=== PATIENT | female | born 1960 | race Caucasian/White ===

== ENCOUNTER → 2018-02-22 16:16 | Outpatient (CLI) | payer OTHER, SELFPAY ==
--- NOTE | 2018-02-22 16:22 | US_ITS ---
STUDY: THYROID ULTRASOUND REASON FOR EXAM: Female, 57 years old. F/U NODULES TECHNIQUE: Ultrasound evaluation of the thyroid was performed with real-time and static walden-scale imaging. COMPARISON: 01.24.17 FINDINGS: RIGHT LOBE: The right lobe of the thyroid gland measures 5.5 x 1.4 x 1.8 cm. There is a homogeneous echotexture. Mid right hypoechoic nodule measuring 5.3 x 5.7 x 4.6 mm. The lesion is solid with regular margins and giovanna nodular doppler flow. Solid nodule visualized in the right thyroid lobe measuring 4.8 x 3.9 x 4.8 mm. The lesion is solid with regular margins and intra- nodular doppler flow. Nodule in the right thyroid lobe measuring 7.6 x 4 x 5.4 mm. The lesion is solid with regular margins and giovanna nodular doppler flow. LEFT LOBE: The left lobe of the thyroid gland measures 4 x .9 x .8 cm. There is a homogeneous echotexture. Echogenic nodule in the left thyroid lobe measuring 4.5 x 2.7 x 2.8 mm. The lesion is solid with regular margins and giovanna nodular doppler flow. ISTHMUS: The isthmus measures 3 mm . Left neck lymph node measures 13 x 9 x 3 mm and 15 x 8 x 4 mm. Right Elliptical lymph node visualized measuring 13 x 3 x 9.3 mm. Another lymph node measured 8 x 5 x 4 mm and 10 x 7 x 3 mm. US/Thyroid IMPRESSION: Multiple subcentimeter bilateral thyroid nodules. These are relatively stable in size. Electronically Signed: Nik De La Rosa MD at 17:28 EDT , Service support ,
--- NOTE | 2018-02-22 16:58 | BI_ITS ---
MAMMOGRAPHY - BILATERAL SCREENING REASON FOR EXAM: Female, 57 years old. Routine annual screening examination. PERTINENT HISTORY: Aunt with breast cancer. TECHNIQUE: Digital bilateral breast chino (3D mammographic acquisition) in the CC and MLO projections. 2-D mediolateral oblique (MLO) and craniocaudad (CC) views of both breasts were obtained. CAD: Full Field Digital Mammography with Computer Added Detection was performed. COMPARISON: Comparison is made with prior study dated January 24, 2017. FINDINGS: Breast Composition: There are scattered areas of fibroglandular density. There are no dominant masses or suspicious calcifications. There is a 4.4 mm x 5.6 mm well-defined nodule in the slightly inferior lateral retroareolar region of the left breast. This most likely related to a small cyst. Correlation with ultrasound is recommended. No other significant abnormalities are identified. BI/SCREENING MAMM (CAD), BILAT IMPRESSION: 4 mm x 6 mm well-defined nodule in the left breast as described. Correlation with ultrasound is recommended. ASSESSMENT CATEGORY: BIRADS Category 0: Incomplete. Need additional imaging evaluation. A letter regarding these results will be sent to the patient by the facility within 30 days. Approximately 10% of breast cancers are not detected by mammography. A normal mammogram should not delay biopsy of a clinically suspicious abnormality. [id number] Electronically Signed: Harsh Chandra MD at 9:48 EDT Tel [phone], Service support ,
== END ==
PROVIDERS: Family Provider Internal Medicine; PCP Internal Medicine; Visit Provider Internal Medicine
DX: Z12.31 Encounter for screening mammogram for malignant neoplasm of breast (principal); E04.1 Nontoxic single thyroid nodule
CPT/HCPCS: 76536; 77063; 77067

== ENCOUNTER → 2018-02-28 15:31 | Outpatient (CLI) | payer OTHER, SELFPAY ==
--- NOTE | 2018-02-28 15:32 | US_ITS ---
STUDY: ULTRASOUND BREAST - LEFT REASON FOR EXAM: Female, 57 years old. Abnormal screening mammogram. TECHNIQUE: Axial and longitudinal images of the LEFT breast were performed with a high resolution ultrasound transducer. COMPARISON: Comparison is made with prior mammogram dated February 22, 2018. FINDINGS: LEFT Breast: The mammographic abnormality corresponds to a 3 mm x 2 mm x 3 mm cyst at the 5:00 position breast at 1 cm from nipple. This also evidence of a dilated duct. US/Breast Limited Unilateral IMPRESSION: 3 mm x 2 mm x 3 mm cyst at the 5:00 position breast at 1 cm from nipple. ASSESSMENT CATEGORY: BIRADS Category 2: Benign. A letter regarding these results will be sent to the patient by the facility within 30 days. Electronically Signed: Harsh Chandra MD at 7:59 EDT Tel [phone], Service support ,
== END ==
PROVIDERS: Family Provider Internal Medicine; PCP Internal Medicine; Visit Provider Internal Medicine
DX: R92.8 Other abnormal and inconclusive findings on diagnostic imaging of breast (principal)
CPT/HCPCS: 76642

== ENCOUNTER → 2018-04-24 07:58 | Outpatient (CLI) | payer OTHER, SELFPAY ==
--- NOTE | 2018-04-24 13:09 | ECHOD_ITS ---
Reason For Study: PVC Procedure This was a 2D Doppler, Color Flow transthoracic echocardiogram. The exam was of adequate technical quality. Exam performed in department. Left Ventricle Normal LV size. Left ventricular systolic function is normal. The estimated ejection fraction is 65 %. Transmitral doppler flow suggestive of impaired relaxation of left ventricle. No regional wall motion abnormalities noted. Right Ventricle Normal RV size. Normal systolic function. Atria The left atrium is mildly enlarged. Normal right atrium. No doppler evidence for ASD. Mitral Valve There is no mitral annular calcification. Normal mitral valve. Trivial mitral valve insufficiency. Tricuspid Valve Normal tricuspid valve. Trivial tricuspid valve insufficiency. Right ventricular systolic pressure estimated to be 25 mmHg. Aortic Valve Trisinus/trileaflet aortic valve. Normal aortic valve. Pulmonic Valve The pulmonic valve is not well visualized. Great Vessels Normal sized aortic root. Pericardium/Pleural No pericardial effusion. MMode/2D Measurements & Calculations LVIDd: 3.8 cm IVSd: 1.2 cm Ao root diam: 3.1 cm LVIDs: 2.0 cm LVPWd: 1.1 cm LA dimension: 3.7 cm FS: 47.3 % LAV(MOD-bp): 58.1 ml LA A4 area: 20.6 cm2 RA A4 area: 14.7 cm2 LAV(MOD-bp) Indexed: 30.4 ml/m2 LAV(MOD-sp2): 45.2 ml LAV(MOD-sp4): 61.0 ml Time Measurements MV dec time: 0.30 sec Doppler Measurements & Calculations MV E max brijesh: 66.6 cm/sec Lat Peak E' Brijesh: 13.2 cm/sec Med Peak E' Brijesh: 9.2 cm/sec MV A max brijesh: 92.8 cm/sec E/E' lat: 5.0 E/E' med: 7.2 MV E/A: 0.72 MV V2 max: 89.7 cm/sec MV P1/2t max brijesh: 76.4 cm/sec Ao V2 max: 133.5 cm/sec MV max P.2 mmHg MV P1/2t: 93.6 msec Ao max P.1 mmHg MV V2 mean: 52.7 cm/sec MV dec slope: 239.0 cm/sec2 Ao V2 mean: 92.7 cm/sec MV mean P.3 mmHg MVA(P1/2t): 2.4 cm2 Ao mean P.8 mmHg MV V2 VTI: 23.8 cm Ao V2 VTI: 28.3 cm LV V1 max: 113.8 cm/sec PA V2 max: 115.6 cm/sec TR max brijesh: 236.1 cm/sec LV V1 max P.2 mmHg TR max P.3 mmHg LV V1 mean P.4 mmHg LV V1 mean: 70.5 cm/sec LV V1 VTI: 22.8 cm Interpretation Summary Left ventricular systolic function is normal. The estimated ejection fraction is 65 %. The left atrium is mildly enlarged. Trivial mitral valve insufficiency. Trivial tricuspid valve insufficiency. Right ventricular systolic pressure estimated to be 25 mmHg. Transmitral doppler flow suggestive of impaired relaxation of left ventricle Ordering Physician: Ashley Kaur Referring Physician: Ashley Kaur Performed By: Chava Fox RCS
== END ==
PROVIDERS: Family Provider Internal Medicine; PCP Internal Medicine; Visit Provider Internal Medicine
DX: I49.3 Ventricular premature depolarization (principal)
CPT/HCPCS: 93225; 93226; 93306

== ENCOUNTER 2018-05-21 09:14 | Day surgery (SDC) | payer OTHER, SELFPAY ==
[2018-05-21] VITALS (7 sets, daily range): BP systolic 79–132; BP diastolic 63–82; PULSE 62–74; RESP 16–18; TEMP 36.2–36.6; O2SAT 96–100; BMI 25.7
--- NOTE | 2018-05-21 10:33 | PCM.OPRPT ---
Problem List (1) Colon cancer screening Status: Acute Report of Operation Date of Procedure: 05/21/18 Pre-Operative Diagnosis: Z12.11 screening colonoscopy Post-Operative Diagnosis: Same Surgery/Procedure Performed:: [id number] colonoscopy Type of Anesthesia:: MAC Anesthesiologist: Haris Arriola Description of Procedure: Patient was brought into the endoscopy suite. Placed in the left lateral decubitus position. Given graded anesthesia. Scope was inserted into the rectum and directed to the sigmoid colon, descending colon, transverse colon, ascending colon, to the cecum. Operative findings: 1. Cecum: Normal in appearance normal ileocecal valve no mass lesions. 2. Ascending colon: Normal appearance no mass lesions 3. Transverse colon: Normal appearance no mass lesions. 4. Descending colon: Normal appearance no mass lesions 5. Sigmoid colon: Number appearance no mass lesions scattered diverticuli identified. 6. Rectum: Normal appearance no mass lesions few internal hemorrhoids scope was withdrawn digital rectal exam was performed showing no masses within the anus patient will need to have another colonoscopy in 10 years - Admit VTE Documentation VTE Present on Admission: No VTE Mechan Device Prophylaxis: None VTE Pharm Prophylaxis ordered?: No Reason prophylaxis not ordered:: Treatment Not Indicated
== END 2018-05-21 11:26 | disposition home or self-care (01) ==
LOC: EN 09:14 → AC 09:15
PROVIDERS: Family Provider Internal Medicine; PCP Internal Medicine; Visit Provider Surgery
PROC: 0DJD8ZZ Inspection of Lower Intestinal Tract, Via Natural or Artificial Opening Endoscopic (ICD-10-PCS; CPT 45378; principal; 2018-05-21 09:55)
DX: Z12.11 Encounter for screening for malignant neoplasm of colon (principal); K64.8 Other hemorrhoids; Z87.891 Personal history of nicotine dependence; G35 Multiple sclerosis; N60.02 Solitary cyst of left breast
CPT/HCPCS: 45378; J7120; J1610

== ENCOUNTER → 2018-06-01 11:00 | Outpatient (CLI) | payer OTHER, SELFPAY | PROVIDERS: Family Provider Internal Medicine; PCP Internal Medicine; Visit Provider Internal Medicine | DX: R59.1 Generalized enlarged lymph nodes (principal) | CPT/HCPCS: 76536 ==

== ENCOUNTER → 2019-05-31 11:34 | Outpatient (CLI) | payer OTHER, SELFPAY ==
--- NOTE | 2019-05-31 11:41 | US_ITS ---
STUDY: THYROID ULTRASOUND REASON FOR EXAM: Female, 58 years old. Evaluation of thyroid nodule. TECHNIQUE: Ultrasound evaluation of the thyroid was performed with real-time and static walden-scale imaging. COMPARISON: Prior exam of February 22, 2018 FINDINGS: RIGHT LOBE: The right lobe of the thyroid gland measures 5.3 x 1.9 x 1.4 cm. There is a homogeneous echotexture. There is a 6 x 6 x 5 mm solid, regular midpole hypoechoic nodule. LEFT LOBE: The left lobe of the thyroid gland measures 4.0 x 1.0 x 0.7 cm. There is a homogeneous echotexture. There is a 4 x 3 x 3 mm solid regular midpole hyperechoic nodule. ISTHMUS: The isthmus measures 2 millimeter. US/Thyroid IMPRESSION: Stable size of the thyroid with generally homogeneous parenchyma. A single hypoechoic nodule of the mid right thyroid is identified that is not substantially changed from the prior examination on [id number] comparison. A single hyperechoic nodule of the mid pole of the left thyroid is not substantially changed from the prior exam 1 [id number] comparison. Electronically Signed: Maggie Dee MD at 23:57 EDT , Service support ,
== END ==
PROVIDERS: Family Provider Internal Medicine; PCP Internal Medicine; Referring Provider Internal Medicine; Visit Provider Internal Medicine
DX: E04.1 Nontoxic single thyroid nodule (principal)
CPT/HCPCS: 76536

== ENCOUNTER → 2019-06-18 12:15 | Outpatient (CLI) | payer OTHER, SELFPAY ==
[2018-05-21 09:34] VITALS: BMI 25.7
--- NOTE | 2019-06-18 12:18 | BI_ITS ---
MAMMOGRAPHY - BILATERAL SCREENING REASON FOR EXAM: Female, 58 years old. Routine annual screening examination. PERTINENT HISTORY: Aunt with breast cancer. TECHNIQUE: Digital bilateral breast dhara (3D mammographic acquisition) in the CC and MLO projections. 2-D mediolateral oblique (MLO) and craniocaudad (CC) views of both breasts were obtained. CAD: Full Field Digital Mammography with Computer Added Detection was performed. COMPARISON: Comparison is made with prior study dated February 22, 2018 and January 24, 2017. FINDINGS: Breast Composition: There are scattered areas of fibroglandular density. There are no dominant masses or suspicious calcifications. Stable 4.4 mm x 5 mm well-defined nodule in the slightly inferior lateral aspect of the retroareolar region of the left breast. This was shown to be a cyst on prior sonogram. No other significant abnormalities are identified. There has been no significant change since the prior study. BI/SCREEN MAMM (CAD) W/DHARA BILAT IMPRESSION: Stable bilateral screening mammogram. Yearly follow-up mammogram recommended. (A) ASSESSMENT CATEGORY: BIRADS Category 2: Benign. A letter regarding these results will be sent to the patient by the facility within 30 days. Approximately 10% of breast cancers are not detected by mammography. A normal mammogram should not delay biopsy of a clinically suspicious abnormality. [id number] Electronically Signed: Harsh Chandra, at 13:23 EDT , Service support ,
--- NOTE | 2019-06-18 12:21 | BD_ITS ---
STUDY: DUAL ENERGY X-RAY ABSORPTIOMETRY / DXA REASON FOR EXAM: Female, 58 years old. Early menopause. Loss of height. TECHNIQUE: Bone Mineral Density (BMD) measurements of lumbar spine and bilateral hips were obtained. COMPARISON: Comparison is made with prior study dated January 24, 2017. FINDINGS: Lumbar Spine (L1-L4): g/cm2 (0.865) / T-score (-2.6) / Z-score (-1.6) Findings are suggestive of osteoporosis with a high fracture risk. Left Femur Total: g/cm2 (0.805) / T-score (-1.6) / Z-score (-0.8) Left Femoral Neck: g/cm2 (0.839) / T-score (-1.4) / Z-score (-0.3) Right Femur Total: g/cm2 (0.844) / T-score (-1.3) / Z-score (-0.5) Right Femoral Neck: g/cm2 (0.848) / T-score (-1.4) / Z-score (-0.2) The T-Scores on the most recent prior examination were: Lumbar Spine (L1-L4): There has been worsening of bone density since the previous examination. Left Femur Total: which represents a worsening of 6.9%. Right Femur Total: which represents a worsening of 2.9%. BD/Dexa Bone Density Study IMPRESSION: The patient is considered osteoporotic as outlined below according to World [employer] Organization (WHO) criteria with a high fracture risk. There has been worsening of bone density since the previous examination. Reference Information: The T-score is the number of standard deviations above or below the standard which is normal for young adults at their peak bone mineral density. The World Health Organization (WHO) interprets the T-scores as follows: Above -1 Normal bone density Between -1 and -2.5 Osteopenia Equal to / or below -2.5 Osteoporosis As a practical clinical guideline, osteopenia may be graded as follows: Mild -1 through -1.5 Moderate -1.6 through -2.0 Severe -2.1 through -2.4 The Z-score is the number of standard deviations above or below age-matched controls. A Z-score of less than -1.5 would be considered abnormal. References: 1. NIH Osteoporosis and Related Bone Diseases http://www.osteo.org 2. International Society for Clinical Densitometry http://www.iscd.org 3. National Osteoporosis Foundation http://www.nof.org Electronically Signed: Harsh Chandra, at 14:28 EDT , Service support ,
== END ==
PROVIDERS: Family Provider Internal Medicine; PCP Internal Medicine; Referring Provider Internal Medicine; Visit Provider Internal Medicine
DX: Z12.31 Encounter for screening mammogram for malignant neoplasm of breast (principal); Z78.0 Asymptomatic menopausal state
CPT/HCPCS: 77063; 77067; 77080

== ENCOUNTER → 2020-06-30 12:20 | Outpatient (CLI) | payer OTHER, SELFPAY ==
--- NOTE | 2020-06-30 12:24 | BI_ITS ---
MAMMOGRAPHY - BILATERAL SCREENING REASON FOR EXAM: Female, 59 years old. Routine annual screening examination. PERTINENT HISTORY: Aunt with breast cancer. TECHNIQUE: Digital bilateral breast dhara (3D mammographic acquisition) in the CC and MLO projections. 2-D mediolateral oblique (MLO) and craniocaudad (CC) views of both breasts were obtained. CAD: Full Field Digital Mammography with Computer Added Detection was performed. COMPARISON: Comparison is made with prior study dated 06/18/2019 and 02/22/2018. FINDINGS: Breast Composition: There are scattered areas of fibroglandular density. There are no dominant masses or suspicious calcifications. Focal area of architectural distortion is seen in the upper lateral portion of the right breast. This most likely represents superimposition of tissue although the patient will be recalled for additional views including 90 degree lateral and compression spot views. No other significant abnormalities are identified. BI/SCREEN MAMM (CAD) W/DHARA BILAT IMPRESSION: Focal area of distortion in the upper lateral aspect of the right breast as described. The patient will be recalled for additional views of the right breast including 90 degree lateral and compression views. Recall Side: Right Breast ASSESSMENT CATEGORY: BIRADS Category 0: Incomplete. Need additional imaging evaluation. A letter regarding these results will be sent to the patient by the facility within 30 days. Approximately 10% of breast cancers are not detected by mammography. A normal mammogram should not delay biopsy of a clinically suspicious abnormality. [id number] Electronically Signed: Harsh Chandra, at 13:45 EDT , Service support ,
--- NOTE | 2020-06-30 12:24 | US_ITS ---
STUDY: THYROID ULTRASOUND REASON FOR EXAM: Female, 59 years old. NODULE TECHNIQUE: Ultrasound evaluation of the thyroid was performed with real-time and static walden-scale imaging. COMPARISON: Comparison is made with prior study dated 05/31/2019. FINDINGS: RIGHT LOBE: The right lobe of the thyroid gland measures 4.9 cm x 1.6 cm x 1.6 cm. There is a homogeneous echotexture. Stable 5 mm x 4 mm x 5 mm hypoechoic solid nodule in the midpole. LEFT LOBE: The left lobe of the thyroid gland measures 3.8 cm x 1.3 cm x 1.4 cm. There is a homogeneous echotexture. There are no demonstrated solid, cystic or complex lesions. ISTHMUS: The isthmus measures 3.0 mm. The regional lymph nodes are normal. US/Thyroid IMPRESSION: Stable 5 mm x 4 mm x 5 mm hypoechoic solid nodule in the midportion of the right lobe of the thyroid. Electronically Signed: Harsh Chandra, at 15:25 EDT , Service support ,
== END ==
PROVIDERS: PCP Internal Medicine; Referring Provider Internal Medicine; Visit Provider Internal Medicine
DX: Z12.31 Encounter for screening mammogram for malignant neoplasm of breast (principal); E04.1 Nontoxic single thyroid nodule; Z80.3 Family history of malignant neoplasm of breast
CPT/HCPCS: 76536; 77063; 77067

== ENCOUNTER → 2020-07-02 13:37 | Outpatient (CLI) | payer OTHER, SELFPAY ==
--- NOTE | 2020-07-02 13:38 | BI_ITS ---
MAMMOGRAPHY - UNILATERAL DIAGNOSTIC: RIGHT BREAST REASON FOR EXAM: Female, 59 years old. Abnormal screening mammogram. PERTINENT HISTORY: Architectural distortion in the right breast. TECHNIQUE: Compression spot views in the craniocaudad and mediolateral oblique projections were obtained. CAD: Full Field Digital Mammography with Computer Added Detection was performed. COMPARISON: Comparison is made with prior examination dated 06/30/2020. FINDINGS: Breast Composition: There are scattered areas of fibroglandular density. Persistent focal area of architectural distortion is seen in the upper lateral portion of the right breast. Correlation with ultrasound is recommended. No other significant abnormalities are identified. BI/DIAG MAMM W/CAD, UNILAT IMPRESSION: Persistent focal area of architectural distortion in the upper lateral portion of the right breast as described. Correlation with ultrasound is recommended. ASSESSMENT CATEGORY: BIRADS Category 0: Incomplete. Need additional imaging evaluation. A letter regarding these results will be sent to the patient by the facility within 30 days. Approximately 10% of breast cancers are not detected by mammography. A normal mammogram should not delay biopsy of a clinically suspicious abnormality. Electronically Signed: Harsh Chandra, at 14:47 EDT , Service support ,
--- NOTE | 2020-07-02 13:55 | US_ITS ---
STUDY: ULTRASOUND BREAST - RIGHT REASON FOR EXAM: Female, 59 years old. Abnormal screening and diagnostic right mammogram. TECHNIQUE: Axial and longitudinal images of the RIGHT breast were performed with a high resolution ultrasound transducer. # OF IMAGES: 81 COMPARISON: Comparison is made with prior mammogram done earlier in the day. FINDINGS: RIGHT Breast: The upper lateral portion of the right breast was examined by ultrasound. No sonographic abnormality is seen. Routine annual mammographic follow-up is recommended. US/Breast Limited Unilateral IMPRESSION: No abnormalities seen on the ultrasound. Routine mammographic follow-up is recommended. ASSESSMENT CATEGORY: BIRADS Category 1: Negative. A letter regarding these results will be sent to the patient by the facility within 30 days. Electronically Signed: Harsh Chandra, at 14:52 EDT , Service support ,
== END ==
PROVIDERS: PCP Internal Medicine; Referring Provider Internal Medicine; Visit Provider Internal Medicine
DX: R92.8 Other abnormal and inconclusive findings on diagnostic imaging of breast (principal)
CPT/HCPCS: 76642; 77065

== ENCOUNTER → 2020-07-31 | Outpatient (CLI) | payer OTHER, SELFPAY ==
--- NOTE | 2020-07-31 15:50 | VDLE_ITS ---
Reason For Study: SWELLING RIGHT GSV is normal. CFV is compressible, spontaneous, phasic, competent and demonstrates normal augmentation. FV is compressible, spontaneous, phasic, competent and demonstrates normal augmentation. POP V is compressible, spontaneous, phasic, competent and demonstrates normal augmentation. T/P Trunk is compressible. PTV is compressible. RT PerV is compressible. Procedure Exam performed in department. A preliminary report was called and/or faxed to DR NDIAYE. Interpretation Summary Deep veins of the right lower extremity are patent and compressible segmentally. There is no evidence of right lower extremity deep vein thrombosis. Valvular competence appears intact within the proximal deep venous system on the right . The right great saphenous vein appears patent and compressible segmentally. Ordering Physician: Ashley Ndiaye Referring Physician: Ashley Ndiaye Performed By: Gabriella Saenz, YSABEL, RVT
--- NOTE | 2020-07-31 16:30 | RAD_ITS ---
STUDY: X-RAY - SACROILIAC JOINTS REASON FOR EXAM: Female, 59 years old. PAIN POSTERIOR PELVIS OVER LEFT S-I JOINT AREA TECHNIQUE: 3 view(s) of the sacroiliac joints were obtained. COMPARISON: None. FINDINGS: Normal bilateral sacroiliac joints. Normal visualized sacral ala and sacrum. There is no demonstrated fracture. Normal visualized iliac bones. Normal visualized soft tissue structures. RAD/S-I Jts 3 or More Views IMPRESSION: Normal x-ray examination of the bilateral sacroiliac joints. Electronically Signed: Yamil Valdovinos MD at 17:39 EDT , Service support ,
--- NOTE | 2020-07-31 16:30 | RAD_ITS ---
STUDY: X-RAY - RIGHT FEMUR REASON FOR STUDY: Female, 59 years old. 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 PAIN ALL DOWN LEG TECHNIQUE: 2 view(s) of the femur. COMPARISON: None. FINDINGS: Normal visualized femur. Normal visualized soft tissue structure. There is no demonstrated fracture or destructive process. RAD/Femur Min 2 Views IMPRESSION: Normal x-ray examination of the femur. Electronically Signed: Yamil Valdovinos MD at 17:37 EDT , Service support ,
--- NOTE | 2020-07-31 16:30 | RAD_ITS ---
STUDY: X-RAY - PELVIS AND LEFT HIP REASON FOR EXAM: Female, 59 years old. PAIN POSTERIOR PELVIS AROUND S-I JOINT AREA TECHNIQUE: 3 views of the pelvis and hip. COMPARISON: None. FINDINGS: There is a non-specific bowel gas pattern. Normal visualized soft tissue structures. Normal bilateral iliac wings, sacroiliac joints and visualized sacrum. Normal bilateral superior and inferior pubic rami. Normal pubic symphysis. Normal bilateral ischial tuberosities. Normal visualized femoral head. Normal acetabulum. Normal hip joint. RAD/HIP, UNI W/ Pelvis 2-3 Views IMPRESSION: Normal x-ray examination of the pelvis and hip. Electronically Signed: Yamil Valdovinos MD at 17:38 EDT , Service support ,
--- NOTE | 2020-07-31 16:30 | RAD_ITS ---
STUDY: X-RAY - LUMBAR SPINE REASON FOR EXAM: Female, 59 years old. PAIN IN LOW BACK AND LEFT S-I JOINT AREA TECHNIQUE: 4 view(s) of the lumbar spine were obtained. COMPARISON: None FINDINGS: Normal lumbar lordosis. There is no substantial scoliosis. There is a normal alignment of the vertebrae. Normal vertebral bodies and endplates. Moderate narrowing of the disc at L5-S1, and mild loss of disc height at other levels. There is no demonstrated fracture. The soft tissue structures are unremarkable. RAD/L/S Spine Min 4 Views IMPRESSION: No acute abnormality. Mild to moderate multilevel degenerative disc disease. Electronically Signed: Yamil Valdovinos MD at 17:07 EDT , Service support ,
== END | disposition home or self-care (01) ==
PROVIDERS: PCP Internal Medicine; Referring Provider Internal Medicine; Visit Provider Internal Medicine
DX: M79.89 Other specified soft tissue disorders (principal); M54.5 Low back pain
CPT/HCPCS: 72110; 72202; 73502; 73552; 93971

== ENCOUNTER 2020-08-17 13:00 | Outpatient (RCR) | payer OTHER, SELFPAY ==
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
--- NOTE | 2020-09-15 12:50 | HP.PTDCSUM ---
It has been my pleasure to treat DAWSON VENCES referred by Dr. Ashley Kaur DO, with the diagnosis of LOW BACK PAIN for a total of 3 visit(s). Discharge Date: Please see the following information for a summary of their discharge status. Subjective: MORE OF A TIGHTNESS AND DISCOMFORT IN LEFT BUTTOCK THAN A PAIN. REPORTS COMPLIANCE WITH PRIOR HOME INSTRUCTIONS. PATIENT REPORTS SHE IS MUCH MORE AWARE OF HER POSTURE AND BODY MECHANICS NOW. PATIENT REPORTS SHE HASN'T BEEN DOING ANY EX'S SINCE SHE GOT HURT. LEFT BUTTOCK Pain Intensity (Out of 10): 1 RIGHT BUTTOCK Pain Intensity (Out of 10): 1 Objective/Function: PATIENT TOLERATED ALL INTERVENTIONS WELL BUT DID HAVE SOME INCREASED MIKEL BUTTOCK PAIN AFTER SUPINE HIP ABD THAT RESOLVED IN PRONE. PATIENT REPORTED BEING PAINFREE UPON DEPARTURE. PATIENT DEMONSTRATED AND COMMUNICATED A GOOD UNDERSTANDING OF ALL INSTRUCTIONS AFTER GIVEN. Goal 1:: DECREASE C/O BACK AND BUTTOCK PAIN. Goal 2:: IMPROVE LIFTING, WALKING, SITTING, STANDING, SOCIAL LIFE, TREAVEL AND HOMEMAKING FUNCTION Goal 3:: INSTRUCT IN PROPHYLAXIS Plan: US, E-STIM WITH MH OR CP, POSTURE CORRECTION/STRENGTHENING, INSTRUCTION IN APPROPRIATE BODY MECHANICS AND ACTIVITY MODIFICATIONS. DLS STARTING WITH A NEUTRAL SPINE PROGRESSING ROM TOLERATED. MIKEL LE ROM, STRETCHING AND STRENGTHENING. HEP INSTRUCTION. If there are questions or concerns regarding this patient's physical therapy, please feel free to call me at [phone]. Thank you for the referral of this patient. Sincerely, Casandra Ordonez, PT, Cert MDT
== END 2020-08-17 19:00 | disposition home or self-care (01) ==
LOC: PT 13:00
PROVIDERS: PCP Internal Medicine; Referring Provider Internal Medicine; Visit Provider Internal Medicine
DX: M54.5 Low back pain (principal); M53.3 Sacrococcygeal disorders, not elsewhere classified
CPT/HCPCS: 97035; 97112; 97162; 97530

== ENCOUNTER 2020-10-15 17:47 | Emergency (ER) | payer OTHER, SELFPAY ==
[2020-10-15 17:48] VITALS: BP 134/93; PULSE 88; RESP 14; TEMP 36.9; O2SAT 96; BMI 24.3
--- NOTE | 2020-10-15 18:20 | RAD_ITS ---
STUDY: X-RAY - UNILATERAL RIBS ( RIGHT ) WITH CHEST REASON FOR EXAM: Female, 59 years old. right axillary rib pain after being kicked by a horse. TECHNIQUE - RIBS: 4 view(s) of the ribs. TECHNIQUE - CHEST: 1 view COMPARISON: Prior chest radiograph of 11/17/2015 FINDINGS - RIBS: Acute rib fracture of the anterior lateral right third rib. Angular deformity of the anterior right fourth and fifth ribs. FINDINGS - CHEST: Negative for pneumothorax or pleural effusion. The lungs are clear and expanded. There is no demonstrated pleural abnormality. Normal size heart. Normal mediastinum and tyron. Normal visualized pulmonary arteries. Normal visualized aortic arch and descending thoracic aorta. Normal visualized thoracic spine. Multiple prior healed left rib fractures in the axillary region. There is no demonstrated abnormality of the visualized soft tissue structures of the upper abdomen. RAD/Ribs Uni Min 3V w/PA Chest IMPRESSION: RIBS: Acute fractures of the anterior right third, fourth and fifth ribs. CHEST: Negative for pneumothorax, major atelectasis or pleural effusion. Multiple prior healed left rib fractures. Electronically Signed: Maggie Dee MD at 18:52 EST , Service support ,
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
[2020-10-15] MEDS: oxyCODONE 5 MG Tablet PO (18:32)
[2020-10-15] MEDS: Ondansetron ODT 4 MG Tablet PO (19:38)
--- NOTE | 2020-10-15 19:54 | ED.RN ---
THIS RN WENT IN PT ROOM TO EDUCATE PT ON DISCHARGE INSTRUCTIONS. PT WAS KNEELING ON THE FLOOR, C/O NAUSEA AND DIZZINESS. PT ASSISTED IN STANDING AND GETTING BACK INTO BED. PT GIVEN EMESIS BAG. PT DIAPHORETIC AND PALE. DR. BARAJAS INFORMED OF SITUATION, ORDER FOR ZOFRAN GIVEN. PT MEDICATED. SEE MAR. PT REPORTS NEED TO URINATE. ASSISTED UP TO BEDSIDE COMMODE AND THEN RETURNED TO BED. BIZTALK DEVELOPER PLACED. NORMAL SINUS RHYTHM ON BIZTALK DEVELOPER. PT REPORTS THAT SHE HAS NOT EATEN SINCE NOON. PT GIVEN WATER AND SNACK.
--- NOTE | 2020-10-15 20:06 | ED.RN ---
PT ABLE TO EAT A SNACK OF APPLE SAUCE, REPORTS IMPROVEMENT IN NAUSEA. DR. BARAJAS INFORMED. REPORTS HE WILL RE-EVALUATE.
[2020-10-15 20:24] VITALS: BP 128/83; PULSE 84; RESP 16; O2SAT 98
--- NOTE | 2020-10-15 20:24 | ED.RN ---
PT REPORTS SHE IS READY TO BE DISCHARGE. PT RE-EVALUATED BY DR. BARAJAS. ASSISTED IN DRESSING AND PLACED IN WHEELCHAIR. PT EDUCATED ON D/C INSTRUCTIONS AND HOME GOING PAPERWORK. PT DENIES ANY FURTHER QUESTIONS. CALL TO PICK HER UP.
== END 2020-10-15 20:25 | disposition home or self-care (01) ==
PROVIDERS: Emergency Provider Emergency Medicine; PCP Internal Medicine
DX: S22.41XA Multiple fractures of ribs, right side, initial encounter for closed fracture (principal); W55.12XA Struck by horse, initial encounter; Y93.K1 Activity, walking an animal; Y99.9 Unspecified external cause status
CPT/HCPCS: 71101; 99283; J7030

== ENCOUNTER → 2021-07-20 14:00 | Outpatient (CLI) | payer SELFPAY, BC ==
--- NOTE | 2021-07-20 14:08 | US_ITS ---
STUDY: THYROID ULTRASOUND REASON FOR EXAM: Female, 60 years old. NODULE TECHNIQUE: Ultrasound evaluation of the thyroid was performed with real-time and static walden-scale imaging. COMPARISON: 06/30/2020 FINDINGS: RIGHT LOBE: The right lobe of the thyroid gland measures 5.0 x 1.4 x 1.8 cm. There is a homogeneous echotexture. Nodule 1: Shrinking (5 x 5 x 4 mm to 2 x 3 x 2 mm) solid hypoechoic wider than tall ill-defined marginated nodule with no echogenic foci (TR 4) in the mid right lobe consistent with a tiny adenoma. LEFT LOBE: The left lobe of the thyroid gland measures 4.1 x 0.9 x 0.7 cm. There is a homogeneous echotexture. There are no demonstrated solid, cystic or complex lesions. ISTHMUS: The isthmus measures 2 mm thick. . The regional lymph nodes are normal. US/Thyroid IMPRESSION: Shrinking tiny adenoma in the right lobe. Electronically Signed: Igor Colón MD at 8:46 EDT Tel , Service support ,
--- NOTE | 2021-07-20 14:08 | BI_ITS ---
MAMMOGRAPHY - BILATERAL SCREENING 3-D TOMOSYNTHESIS REASON FOR EXAM: Female, 60 years old. SCREENING PERTINENT HISTORY: No significant family history. TECHNIQUE: 2-D mammograms and 3-D Tomosynthesis of the breast (s) were performed. CAD was performed. COMPARISON: 06/30/2020 FINDINGS: The breast composition is composed of scattered fibroglandular density. Scattered benign calcifications are seen. No dense spiculated masses or suspicious microcalcifications are identified. No architectural distortion is identified. There is no skin thickening or retraction. There has been no significant change since the prior study. BI/SCRN MAMM (CAD)W/DHARA BILAT IMPRESSION: No mammographic signs of malignancy. Routine yearly mammograms recommended. ASSESSMENT CATEGORY: BIRADS Category 1: Negative. A letter regarding these results will be sent to the patient by the facility within 30 days. FOLLOW UP RECOMMENDATION: Yearly follow up mammogram recommended. (A) Approximately 10% of breast cancers are not detected by mammography. A normal mammogram should not delay biopsy of a clinically suspicious abnormality. Electronically Signed: Igor Colón MD at 12:17 EDT Tel , Service support ,
--- NOTE | 2021-07-20 14:51 | BD_ITS ---
STUDY: DUAL ENERGY X-RAY ABSORPTIOMETRY / DXA REASON FOR EXAM: Female, 60 years old. 627.8Menopausal postmenopausalBONE DENSITY REASON FOR EXAM TECHNIQUE: Bone Mineral Density (BMD) measurements of lumbar spine and bilateral hips were obtained. COMPARISON: Comparison is made with prior examination of 06/18/2019. FINDINGS: Lumbar Spine (L1-L4): g/cm2 (0.763) / T-score (-2.6) / Z-score (-1.1) Findings are suggestive of osteoporosis with a high fracture risk. Left Femur Total: g/cm2 (0.689) / T-score (-2.1) / Z-score (-1.1) Left Femoral Neck: g/cm2 (0.668) / T-score (-1.6) / Z-score (-0.3) Right Femur Total: g/cm2 (0.733) / T-score (-1.7) / Z-score (-0.7) Right Femoral Neck: g/cm2 (0.697) / T-score (-1.4) / Z-score (-0.1) The T-Scores on the most recent prior examination were: Lumbar Spine (L1-L4): There has been improvement of bone density since the previous examination. Left Femur Total: which represents a worsening of 7.5%. Right Femur Total: which represents a worsening of 6.3%. BD/Dexa Bone Density Study IMPRESSION: The patient is considered osteoporotic as outlined below according to World Azar Organization (WHO) criteria with a high fracture risk. There has been worsening of bone density since the previous examination. Reference Information: The T-score is the number of standard deviations above or below the standard which is normal for young adults at their peak bone mineral density. The World Health Organization (WHO) interprets the T-scores as follows: Above -1 Normal bone density Between -1 and -2.5 Osteopenia Equal to / or below -2.5 Osteoporosis As a practical clinical guideline, osteopenia may be graded as follows: Mild -1 through -1.5 Moderate -1.6 through -2.0 Severe -2.1 through -2.4 The Z-score is the number of standard deviations above or below age-matched controls. A Z-score of less than -1.5 would be considered abnormal. References: 1. NIH Osteoporosis and Related Bone Diseases www osteo.org 2. International Society for Clinical Densitometry www iscd.org 3. National Osteoporosis Foundation www nof.org Electronically Signed: Harsh Chandra MD at 15:16 EDT , Service support ,
== END ==
PROVIDERS: PCP Internal Medicine; Referring Provider Internal Medicine; Visit Provider Internal Medicine
DX: Z12.31 Encounter for screening mammogram for malignant neoplasm of breast (principal); Z78.0 Asymptomatic menopausal state; E04.1 Nontoxic single thyroid nodule
CPT/HCPCS: 76536; 77063; 77067; 77080

== ENCOUNTER → 2022-10-12 | Outpatient (CLI) | payer BC, SELFPAY ==
--- NOTE | 2022-10-12 12:04 | RAD_ITS ---
INDICATION: ABN LUNG SOUNDS EXAMINATION/TECHNIQUE: X-RAY - XR Chest 2 Views COMPARISON: Chest radiograph from 10/15/2020 FINDINGS: Support devices: None. No focal consolidations, effusions, or sizable pneumothorax. Mild emphysematous changes. Cardiomediastinal silhouette is within normal limits. Stable remote left-sided rib fractures. No acute findings in the bones or soft tissues. RAD/Chest PA and Lateral IMPRESSION: No radiographic evidence of acute cardiopulmonary disease. Electronically Signed: Jamel Doss, at 12:24 EST ,
== END | disposition home or self-care (01) ==
PROVIDERS: PCP Internal Medicine; Referring Provider Internal Medicine; Visit Provider Internal Medicine
DX: R09.89 Other specified symptoms and signs involving the circulatory and respiratory systems (principal)
CPT/HCPCS: 71046

== ENCOUNTER → 2023-05-09 | Outpatient (CLI) | payer BC, SELFPAY ==
[2023-05-09 15:34] LABS: Absolute Lymphocyte Count 1.02 X10^3/uL (0.83-4.51); Absolute Neutrophil Count 9.6 X10^3/uL (2.0-7.7); Basophil# 0.04 X10^3/uL; Basophil% 0.3 % (0-1); Hematocrit 39.2 % (37-47); Hemoglobin 12.8 g/dL (12.0-15.0); Lymphocyte # 1.02 X10^3/ul (0.83-4.51); Lymphocyte % 8.7 % (19-41); Mean Corp Hgb Conc 32.7 g/dL (32-36); Mean Corpuscular Hgb 29.8 pg (27.0-32.0); Mean Corpuscular Volume 91.2 fL (81-99); Mean Platelet Vol. 11.4 fl (6.2-12.0); Monocyte% 9.3 % (0-10); NRBC Flagged by Analyzer 0 % (0-5); Neutrophil # 9.56 X10^3/uL (2.7-7.7); Neutrophil % 81.2 % (47-70); Platelet Count 240 K/mm3 (150-450); RBC Distribution Width SD 43.7 fl (35.1-43.9); White Blood Count 11.8 K/mm3 (4.4-11.0)
== END | disposition home or self-care (01) ==
PROVIDERS: PCP Internal Medicine; Referring Provider Nurse Practitioner Family; Visit Provider Nurse Practitioner Family
DX: N30.01 Acute cystitis with hematuria (principal)
CPT/HCPCS: 36415; 85025